=== PATIENT | female | born 1985 | race Caucasian/White ===

== ENCOUNTER 2017-08-30 10:51 | Emergency (ER) | payer BC ==
[~2017-08-30] VITALS: Ht 160 cm; Wt 65.8 kg
[~2017-08-30 10:51] MED LIST: ALDACTONE50 MG PO; ATENOLOL25 MG PO; COZAAR50 MG PO; FLUCONAZOLE150 MG PO; LISINOPRIL20 MG PO; MELATONIN3 MG PO; METRONIDAZOLE250 MG PO; NORVASC10 MG PO; VITAFOL-OB+DHA1 EACH PO
[2017-08-30] MEDS ORDERED: SPIRONOLACTONE25 MG PO (10:59)
[2017-08-30] MEDS ORDERED: LOSARTAN-HCTZ1 EACH PO (10:59)
[2017-08-30] MEDS ORDERED: AMLODIPINE BESY10 MG PO (10:59)
[2017-08-30] MEDS ORDERED: ATENOLOL50 MG PO (11:00)
[2017-08-30] MEDS ORDERED: DIFLUCAN150 MG PO (12:40)
[2017-08-30] MEDS ORDERED: XANAX0.5 MG PO (12:40)
[2017-08-30] MEDS ORDERED: CIPRO250 MG PO (13:09)
--- NOTE | 2017-08-30 17:08 | EKG ---
[facility] [address] [facility] [place], [place] [address] Signed Normal sinus rhythm Nonspecific ST abnormality Abnormal ECG No previous ECGs available Confirmed by MILDRED VELA MD ([id number]) on 08/30/2017 5:08:09 PM Electronically Signed By: MILDRED VELA MD 08/30/17 1708 PATIENT NAME: URVASHI FOWLER Electrocardiogram DATE OF : 81 PHYSICIAN: MILDRED VELA MD REPORT #: [id number] REPORT IS CONFIDENTIAL AND NOT TO BE RELEASED WITHOUT AUTHORIZATION
== END 2017-08-30 13:39 | disposition home or self-care (01) ==
LOC: ED 10:51
DX: R07.9 Chest pain, unspecified (principal); F41.9 Anxiety disorder, unspecified; N39.0 Urinary tract infection, site not specified; E87.6 Hypokalemia; E87.1 Hypo-osmolality and hyponatremia; I10 Essential (primary) hypertension; F17.200 Nicotine dependence, unspecified, uncomplicated; Z79.899 Other long term (current) drug therapy
CPT/HCPCS: 71045; 80053; 81001; 84484; 85025; 93005; 93010; 96361; 96374; 99284; J2060; J7030

== ENCOUNTER 2022-09-08 21:33 | Emergency (ER) | payer BC ==
[~2022-09-08] VITALS: Ht 160 cm; Wt 81.7 kg
[~2022-09-08 21:33] MED LIST changes: +AMLODIPINE BESY10 MG PO; +ATENOLOL50 MG PO; +CIPRO250 MG PO; +DIFLUCAN150 MG PO; +LOSARTAN-HCTZ1 EACH PO; +SPIRONOLACTONE25 MG PO; +XANAX0.5 MG PO
[2022-09-08] MEDS ORDERED: HYDROCODON-ACE1 EA10 PO (22:58)
[2022-09-08 23:46] VITALS: BP 112/71
== END 2022-09-08 23:47 | disposition home or self-care (01) ==
LOC: ED 21:33
DX: S82.841A Displaced bimalleolar fracture of right lower leg, initial encounter for closed fracture (principal); I10 Essential (primary) hypertension; F17.200 Nicotine dependence, unspecified, uncomplicated; X50.1XXA Overexertion from prolonged static or awkward postures, initial encounter; Z79.899 Other long term (current) drug therapy
CPT/HCPCS: 73610; 96372; 99283 25; A9270; J1885

== ENCOUNTER 2022-09-11 08:25 | Day surgery (SDC) | payer BC ==
[~2022-09-11 08:25] MED LIST changes: +HYDROCODON-ACE1 EA10 PO
[2022-09-11 09:12] VITALS: BP 109/72
[2022-09-11] MEDS ORDERED: PRAVASTATIN SOD20 MG PO (09:30)
[2022-09-11] MEDS ORDERED: HYDROXYZINE HCL25 MG PO (09:31)
[2022-09-11] MEDS ORDERED: ESCITALOPRAM OX20 MG PO (09:32)
[2022-09-11] MEDS ORDERED: DICLOFENAC SODI75 MG PO (14:08)
[2022-09-11] MEDS ORDERED: ASPIRIN325 MG PO (14:08)
[2022-09-11] MEDS ORDERED: HYDROCODON-ACE1 EA11 PO (14:09)
[2022-09-11 14:55] VITALS: BP 105/73
--- NOTE | 2022-09-11 15:02 | NUR ---
09/11/22 1502 Vanessa [place] 1410 PT ARRIVED IN PACU SLEEPY WITH NO C/O'S. R ANKLE ELEVATED AND BOOT PLACED BY OR NURSE. 1420 ICE TO R ANKLE PER DR ORDERS. 1430 RESTING. REU. 1445 NO C/O'S. AWAKENS TO VERBAL STIMULI. 1455 TO DS. REPORT GIVEN TO RN. CALL LITE IN PLACE.
--- NOTE | 2022-09-11 15:08 | NUR ---
1455: PT ARRIVES BACK TO DS RM 3 FROM PACU VIA STRETCHER. PT DENIES ANY PAIN IN RIGHT FOOT AND STATES "IT IS COMPLETELY NUMB." PT DENIES NAUSEA AND STATES "I AM STILL A LITTLE DISORIENTED" AND REQUESTS WATER AND FOOD. PT PROVIDED CRACKERS, TOLERATES WELL WITH NO NAUSEA. PT FATHER AT BEDSIDE ON ARRIVAL, EXITS ROOM AND STATES HE WILL BE BACK. DC CRITERIA EXPLAINED TO PT, CALL LIGHT WITHIN REACH. PT ON PERSONAL CELL PHONE.
[2022-09-11 16:05] VITALS: BP 116/79
--- NOTE | 2022-09-11 16:13 | NUR ---
1605: PT RESTING IN BED AWAKE AND ALERT, CONTINUES TO DENY ANY PAIN IN RIGHT FOOT. PHYSICAL THERAPY IN PT ROOM AT THIS TIME, IV SL. PT AND FATHER TRANSFER WITH THERAPIST TO MED SURG VIA AT THIS TIME.
[2022-09-11 17:00] VITALS: BP 118/76
--- NOTE | 2022-09-11 18:15 | NUR ---
[id number]: PT BACK FROM MED SURG, PHYSICAL THERAPIST STATES THAT PT IS SAFE TO DC HOME. PT CONT TO DENY ANY PAIN IN RIGHT LEG AND STATES IT IS STILL NUMB. PT DRESSES SELF AND ENCOURAGED TO USE CALL LIGHT WHEN FINISHED. [id number]: DC INSTRUCTIONS PRESENTED VERBALLY AND WRITTEN TO PT. AWARE THAT MEDICATIONS HAVE BEEN SENT TO PHARMACY TO DIRECTOR IT. PT WHEELED TO BR ABLE TO VOID QS WITH NO PROBLEMS. PT DC FROM DS RM 3 VIA WC TO FATHER WAITING AT MAIN ENTRANCE TO HOME.
--- NOTE | 2022-09-14 06:44 | EKG ---
[facility] [address] [facility] [place] [address] Signed Normal sinus rhythm Nonspecific ST and T wave abnormality . flattened T waves Abnormal ECG When compared with ECG of 30-AUG-2017 10:54, Nonspecific T wave abnormality now evident in Anterior leads Confirmed by LIZZ KIM MD ([id number]) on 09/14/2022 6:44:26 AM Electronically Signed By: LIZZ KIM 09/14/22 0644 PATIENT NAME: URVASHI FOWLER Electrocardiogram DATE OF : 81 PHYSICIAN: LIZZ KIM REPORT #: [id number] REPORT IS CONFIDENTIAL AND NOT TO BE RELEASED WITHOUT AUTHORIZATION
--- NOTE | 2022-09-15 06:55 | OR ---
[facility] [address] [place], [place] [address] Signed DATE OF OPERATION: 09/11/2022 SURGEON: Christiane Arias MD PREOPERATIVE DIAGNOSIS: Trimalleolar ankle fracture, right. POSTOPERATIVE DIAGNOSIS: Trimalleolar ankle fracture, right. PROCEDURE PERFORMED: Open reduction and internal fixation, right ankle, bimalleolar. CONICAL MIXER: Amanda Viramontes PA-C. ANESTHESIA: General. BLOOD LOSS: Minimal. TOURNIQUET TIME: 55 minutes. IMPLANTS: A 7-hole 1/3rd tubular plate with 8 screws, 1.6 K-wire. BRIEF HISTORY: Urvashi is a 37-year-old female, who suffered a fall over the weekend, fracturing her ankle on her back deck. Risks and benefits of operative treatment were discussed with her and she elected to proceed. I brought her in early because I felt that this was an unstable fracture and the possibility of it dislocating was fairly high. DESCRIPTION OF PROCEDURE: Once consent was obtained, she was taken to the operating room. After adequate anesthesia, she was placed on the operating room table on a hip bump. The leg was then prepped and draped in a standard sterile fashion and exsanguinated using an Esmarch bandage. Tourniquet was inflated to 250 mmHg. A lateral approach to the fibula was undertaken with an incision through the skin and down to the bone. Subperiosteal Electronically Signed By: CHRISTIANE ARIAS MD 09/15/22 0655 PATIENT NAME: URVASHI FOWLER OPERATIVE REPORT DATE OF : 81 REPORT #: [id number] PHYSICIAN: CHRISTIANE ARIAS MD PCP: ALBAN OLIVERA NP REPORT IS CONFIDENTIAL AND NOT TO BE RELEASED WITHOUT AUTHORIZATION [facility] [address] [place], [place] [address] Signed elevation anteriorly and posteriorly revealed the fracture. The fracture was distracted and debris was removed. The fracture was then cross clamped and checked with the image intensifier and was found to be satisfactorily placed. The fracture was then held with a standard anterior to posterior screw. The 7-hole 1/3rd tubular plate was then fashioned to fit the lateral side of the fibula. This was held with the central screw and the position was checked and found to be satisfactory. Four screws were placed in the proximal portion of the plate, 2 locking screws distally. Attention was then turned to the medial side. This was still displaced after the reduction of the lateral side. A 2 inch incision was made medially, carried through the skin and subcutaneous tissue. We were able then to localize the fracture and dissected free. The anterior periosteum was flipped into the wound. The periosteum was removed and the fracture fragment was clamped back into position. This was then held using a 1.6 mm K-wire. One screw was placed posterior to this. However, I did not feel like the fragment was begun after placing another screw. We then cut and bent the K-wire to fit right on top of the hole of the screw. Final radiographs showed good reduction and placement of hardware. The posterior . The wounds were copiously irrigated with normal saline, closed using 2-0 Monocryl deep and barbara for the skin. The wounds were dressed with Allevyn and gauze. She was placed in Chris wrap and back into a fracture boot. Christiane Arias MD BA/ROJELIOL /[id number] Copies: ~ Electronically Signed By: CHRISTIANE ARIAS MD 09/15/22 0655 PATIENT NAME: URVASHI FOWLER OPERATIVE REPORT DATE OF : 81 REPORT #: [id number] PHYSICIAN: CHRISTIANE ARIAS MD PCP: ALBAN OLIVERA NP REPORT IS CONFIDENTIAL AND NOT TO BE RELEASED WITHOUT AUTHORIZATION
== END 2022-09-11 17:15 | disposition home or self-care (01) ==
LOC: DS 08:25
PROVIDERS: ATTEND Specialist
PROC: 0QSG0ZZ Reposition Right Tibia, Open Approach (ICD-10-PCS; 2022-09-11)
PROC: 3E0T3BZ Introduction of Anesthetic Agent into Peripheral Nerves and Plexi, Percutaneous Approach (ICD-10-PCS; 2022-09-11)
PROC: 0QSJ04Z Reposition Right Fibula with Internal Fixation Device, Open Approach (ICD-10-PCS; principal; 2022-09-11 14:15)
DX: S82.851A Displaced trimalleolar fracture of right lower leg, initial encounter for closed fracture (principal); W19.XXXA Unspecified fall, initial encounter
CPT/HCPCS: 01480; 36415; 64445; 64447; 73600; 76942; 80053; 84703; 85025; 93005; 93010; 97161; C1713; J0690; J1100; J1885; J2001; J2250; J2405; J2704; J2765; J2795; J3010; J7121

== ENCOUNTER 2023-01-29 09:30 | Day surgery (SDC) | payer BC ==
[~2023-01-29] VITALS: Ht 160 cm; Wt 77.3 kg
--- NOTE | ~2023-01-29 | OR ---
[facility] [address] [place], [place] [address] Draft DATE OF OPERATION: 01/29/2023 SURGEON: Christiane Arias MD PREOPERATIVE DIAGNOSIS: Painful hardware, medial malleolus, right. POSTOPERATIVE DIAGNOSIS: Painful hardware, medial malleolus, right. PROCEDURE PERFORMED: Removal of hardware deep right ankle. JOINERY MACHINIST: Amanda Viramontes PA-C. ANESTHESIA: General. TOURNIQUET TIME: 8 minutes. BLOOD LOSS: None. BRIEF HISTORY: Urvashi is a 37-year-old female, who suffered a bimalleolar ankle fracture and underwent ORIF with uneventful healing. She continued to have pain medially particularly posterior medially. MRI showed no significant damage to the posterior tibialis. The hardware was prominent. Risks and benefits of hardware removal were discussed with her and she elected to proceed. DESCRIPTION OF PROCEDURE: Once consent was obtained she was taken to the operating room after adequate anesthesia she was placed on operating table. All downside pressure points well padded. The leg was prepped and draped in a standard sterile fashion up to a proximal thigh tourniquet. The tourniquet was well-padded. The leg was then exsanguinated using Esmarch bandage. Tourniquet inflated to 250 mmHg. The prior incision was marked out over the inferior half and carried through the skin and subcutaneous tissue. The K-wire was readily identifiable and was removed with ease. We then found the screw just a little bit PATIENT NAME: URVASHI FOWLER OPERATIVE REPORT DATE OF : 81 REPORT #: [id number] PHYSICIAN: CHRISTIANE ARIAS MD PCP: ALBAN OLIVERA NP REPORT IS CONFIDENTIAL AND NOT TO BE RELEASED WITHOUT AUTHORIZATION [address] [place] [address] Draft posteriorly. The screw was then removed using standard screwdriver. The wound was copiously irrigated with normal saline and closed with barbara. Wound was dressed with Allevyn, ABD and Chris wrap. She tolerated the procedure well. All sponge, needle, and instrument counts were correct. Christiane Arias MD BA/ZE /[id number] Copies: ~ PATIENT NAME: URVASHI FOWLER OPERATIVE REPORT DATE OF : 81 REPORT #: [id number] PHYSICIAN: CHRISTIANE ARIAS MD PCP: ALBAN OLIVERA NP REPORT IS CONFIDENTIAL AND NOT TO BE RELEASED WITHOUT AUTHORIZATION
[~2023-01-29 09:30] MED LIST changes: +ASPIRIN325 MG PO; +DICLOFENAC SODI75 MG PO; +ESCITALOPRAM OX20 MG PO; +HYDROCODON-ACE1 EA11 PO; +HYDROXYZINE HCL25 MG PO; +PRAVASTATIN SOD20 MG PO
[2023-01-29 09:51] VITALS: BP 120/87
[2023-01-29] MEDS ORDERED: DICLOFENAC SODI75 MG PO (10:51)
--- NOTE | 2023-01-29 11:02 | NUR ---
01/29/23 1102 Julianna Rodgers 1052: PATIENT ARRIVES IN PACU WITH ORAL AIRWAY IN PLACE. SHE IS NON-RESPONSIVE. 1058: ORAL AIRWAY REMOVED. 1100: PATIENT WAKES SUDDENLY AND DENIES PAIN.
[2023-01-29 11:34] VITALS: BP 104/74
--- NOTE | 2023-01-29 11:36 | NUR ---
ICED WATER GIVEN. CALL LIGHT WITHIN REACH. FAMILY AT BEDSIDE.
[2023-01-29 12:44] VITALS: BP 97/60
--- NOTE | 2023-01-29 12:45 | NUR ---
FATIMAH 1230: PT IS TOLERATING WATER. SHE IS GIVEN PUDDING TO EAT. SHE DENIES PAIN OR NAUSEA. SON IS AT THE BEDSIDE.
--- NOTE | 2023-01-29 13:11 | NUR ---
LE 1245: PT TOLERATES PUDDING AND WATER. SHE IS HELPED UP OOB TO THE BATHROOM, WHERE SHE IS ABLE TO BEAR FULL WEIGHT TO HER RIGHT ANKLE WITH ONLY TENDERNESS. SHE AMBULATES INDEPENDENTLY TO THE BATHROOM. SHE IS ABLE TO VOID 100MLS OF DARK YELLOW URINE. LE 1255: PT IS TAKEN TO PERSONAL VEHICLE VIA WC. SHE IS ABLE TO TRANSFER HERSELF INDEPENDENTLY WITHOUT ISSUES.
--- NOTE | 2023-01-29 13:13 | NUR ---
FATIMAH 1240: PT AND SON ARE GIVEN VERBAL AND WRITTEN DC INSTRUCTIONS. THEY BOTH VERBALIZE UNDERSTANDING. NO QUESTIONS ARE ASKED AT THIS TIME.
== END 2023-01-29 12:55 | disposition home or self-care (01) ==
LOC: DS 09:30
PROVIDERS: ATTEND Specialist
PROC: 0QPG04Z Removal of Internal Fixation Device from Right Tibia, Open Approach (ICD-10-PCS; principal; 2023-01-29 11:15)
DX: T84.84XA Pain due to internal orthopedic prosthetic devices, implants and grafts, initial encounter (principal); I10 Essential (primary) hypertension
CPT/HCPCS: 84703; J0690; J1100; J1885; J2250; J2405; J2704; J2765; J3010; J7121